=== PATIENT | female | born 1960 | race African-American/Black ===

== ENCOUNTER 2025-03-02 08:40 | Emergency (ER) | payer OTHER ==
[~2025-03-02] VITALS: Ht 162.6 cm; Wt 83.0 kg
[2025-03-02 08:50] VITALS: TEMP 36.9; O2SAT 100
[2025-03-02 09:08] LABS: CLARITY URINE CLOUDY (CLEAR); COLOR URINE YELLOW (YELLOW); GLUCOSE URINE NEGATIVE (NEGATIVE); KETONES URINE NEGATIVE (NEGATIVE); LEUKOCYTE ESTERASE URINE 3+ (NEGATIVE); NITRITE URINE NEGATIVE (NEGATIVE); OCCULT BLOOD URINE TRACE (NEGATIVE); PH URINE 5.5 (4.5-8.0); PROTEIN URINE TRACE (NEGATIVE); SPECIFIC GRAVITY URINE 1.018 (1.005-1.030); UROBILINOGEN URINE 0.2 E.U./dL (0.2-1.0)
[2025-03-02] MEDS ORDERED: NITR100C MT (10:00)
[2025-03-02] MEDS ORDERED: PYR200 PO (10:01)
[2025-03-02 10:12] LABS: SQUAMOUS EPITHELIAL CELL URINE 3+ /lpf (RARE/1+)
[2025-03-02 10:13] LABS: BACTERIA URINE 3+; WBC URINE 50-100 /hpf (0-2)
[2025-03-02 10:14] LABS: RBC URINE 0-2 /hpf (0-2); YEAST URINE RARE
[2025-03-02 11:23] VITALS: BP 136/76; PULSE 79; RESP 16; O2SAT 100
== END 2025-03-02 11:25 | disposition home or self-care (01) ==
LOC: ER 08:40
DX: N39.0 Urinary tract infection, site not specified (principal); Z98.890 Other specified postprocedural states
CPT/HCPCS: 81003; 87077; 87186; 99283